=== PATIENT | female | born 1990 | race American Indian/Alaskan Native ===

== ENCOUNTER 2018-04-28 08:58 | Emergency (ER) | payer BC ==
[2018-04-28 09:28] VITALS: TEMP 99.1
[2018-04-28] MEDS ORDERED: Tobramycin 0.3% OPHT SOLN OS STA (10:19)
[2018-04-28] MEDS ORDERED: Albuterol-Ipratrop 3 mg / 0.5 (3 ml) UD IH STA (10:29)
--- NOTE | 2018-04-28 11:28 | ED PDOC ---
Arrival/HPI - General Chief Complaint: Eye Problem Time Seen by Provider: 04/28/18 10:19 Historian: Patient - History of Present Illness Narrative History of Present Illness (Text): 04/28/18 11:22 27yo female with pmhx of Asthma who present with complaint of discharge from right eye, clear productive cough and wheezing x 4days. States her family members was sick with cold. She started coughing and then wheezing started today. States she used her inhaler this morning. Denies fever, chills, SOB, diaphoresis, chest pain, visual changes, any other complaint. Past Medical History - Provider Review Nursing Documentation Reviewed: Yes - Cardiac Hx Cardiac Disorders: No - Pulmonary Hx Respiratory Disorders: Yes Hx Asthma: Yes - Neurological Hx Neurological Disorder: No - HEENT Hx HEENT Disorder: No - Renal Hx Renal Disorder: No - Endocrine/Metabolic Hx Endocrine Disorders: No - Hematological/Oncological Hx Blood Disorders: Yes Hx Anemia: Yes Hx Blood Transfusions: Yes - Integumentary Hx Dermatological Disorder: No - Musculoskeletal/Rheumatological Hx Musculoskeletal Disorders: No - Gastrointestinal Hx Gastrointestinal Disorders: No - Genitourinary/Gynecological Hx Genitourinary Disorders: No - Psychiatric Hx Psychophysiologic Disorder: No Hx Substance Use: No Family/Social History - Physician Review Nursing Documentation Reviewed: Yes Family/Social History: Unknown Family HX Smoking Status: Current Some Days Smoker Hx Alcohol Use: Yes Frequency of alcohol use: Socially Hx Substance Use: No Allergies/Home Meds Allergies/Adverse Reactions: Allergies strawberry Allergy (Verified 04/28/18 09:23) RASH Home Medications: Home Meds Medication Instructions Recorded Confirmed Albuterol HFA [Ventolin HFA 90 2 puff NEB Q6 PRN 04/28/18 04/28/18 mcg/actuation (8 g)] Review of Systems - Physician Review All systems were reviewed & negative as marked: Yes - Review of Systems Constitutional: Normal Eyes: Other (Right eye discharge) ENT: Normal Respiratory: Normal Cardiovascular: Normal Gastrointestinal: Normal Genitourinary Female: Normal Musculoskeletal: Normal Skin: Normal Neurological: Normal Endocrine: Normal Hemo/Lymphatic: Normal Psychiatric: Normal Physical Exam Vital Signs Reviewed: Yes Vital Signs Temp Pulse Resp BP Pulse Ox 04/28/18 09:24 99.1 F 98 H 17 121/72 98 Temperature: Afebrile Blood Pressure: Normal Pulse: Regular Respiratory Rate: Normal Appearance: Positive for: Well-Appearing, Non-Toxic, Comfortable Pain Distress: None Mental Status: Positive for: Alert and Oriented X 3 - Systems Exam Head: Present: Atraumatic, Normocephalic Pupils: Present: PERRL Extroacular Muscles: Present: EOMI Conjunctiva: Present: Injected (Right eye), Icteric ([employer] right conjunctiva), Other Mouth: Present: Moist Mucous Membranes Neck: Present: Normal Range of Motion Respiratory/Chest: Present: Clear to Auscultation, Good Air Exchange. No: Resp iratory Distress, Accessory Muscle Use, Wheezes, Decreased Breath Sounds, Rales, Retracting, Rhonchi Cardiovascular: Present: Regular Rate and Rhythm, Normal S1, S2. No: Murmurs Abdomen: No: Tenderness, Distention, Peritoneal Signs Back: Present: Normal Inspection Upper Extremity: Present: Normal Inspection. No: Cyanosis, Edema Lower Extremity: Present: Normal Inspection. No: Edema Neurological: Present: GCS=15, CN II-XII Intact, Speech Normal Skin: Present: Warm, Dry, Normal Color. No: Rashes Psychiatric: Present: Alert, Oriented x 3, Normal Insight, Normal Concentration Medical Decision Making ED Course and Treatment: 04/28/18 13:06 PT presented to ED for stated history. she was not in any distress. Not hypoxic. Chest xray NAD PT was treated with Duoneb and Tobramycin in ED Result was DW the pt. She was DC home with prednisone for her asthma exacerbations and advised to use her inhaler as needed. Tessalon perles was given for cough. Referred to her PMd. - RAD Interpretation Radiology Orders: 04/28/18 10:19 CHEST TWO VIEWS (PA/LAT) [RAD] Stat - Medication Orders Current Medication Orders: Discontinued Medications Albuterol/Ipratropium (Duoneb 3 Mg/0.5 Mg (3 Ml) Ud) 3 ml IH STAT STA Stop: 04/28/18 10:30 Last Admin: 04/28/18 10:47 Dose: 3 ml Tobramycin Sulfate (Tobrex 0.3% Ophth Soln) 2 drop OS STAT STA Stop: 04/28/18 10:20 Last Admin: 04/28/18 11:05 Dose: 2 drop Disposition/Present on Arrival - Present on Arrival Any Indicators Present on Arrival: No History of DVT/PE: No History of Uncontrolled Diabetes: No Urinary Catheter: No History of Decub. Ulcer: No History Surgical Site Infection Following: None - Disposition Have Diagnosis and Disposition been Completed?: Yes Diagnosis: Cough, Asthma, Conjunctivitis Disposition: HOME/ ROUTINE Disposition Time: 11:55 Patient Plan: Discharge Condition: STABLE Discharge Instructions (ExitCare): Asthma in Adults, Conjunctivitis ([place]), Cough, Adult (DC) Additional Instructions: Follow up with your Doctor Return to ED for any new or worsening symptoms Prescriptions: Benzonatate [Tessalon Perles] 100 mg PO TID #20 sgl predniSONE [Prednisone] 20 mg PO DAILY #4 tab Referrals: Ac Ibrahim MD [Primary Care Provider] - Follow up with primary Forms: [employer] (French)
[2018-04-28 11:30] VITALS: BP 126/58; PULSE 99; RESP 18; O2SAT 99
--- NOTE | 2018-04-28 12:06 | RAD ---
Date of service: 04/28/2018 HISTORY: cough COMPARISON: No prior. TECHNIQUE: Chest PA and lateral FINDINGS: LUNGS: No active pulmonary disease. PLEURA: No significant pleural effusion identified. No pneumothorax apparent. CARDIOVASCULAR: Normal. OSSEOUS STRUCTURES: No significant abnormalities. VISUALIZED UPPER ABDOMEN: Normal. OTHER FINDINGS: None. IMPRESSION: No active disease.
== END 2018-04-28 11:56 | disposition home or self-care (01) ==
LOC: ED 08:58 → MERGE 08:58 → ED 11:56
DX: J45.909 Unspecified asthma, uncomplicated (principal); H10.9 Unspecified conjunctivitis; R05 Cough; F17.210 Nicotine dependence, cigarettes, uncomplicated